=== PATIENT | female | born 1950 | race Caucasian/White ===

== ENCOUNTER 2022-04-21 09:00 | Outpatient (RCR) | payer MEDICARE, OTHER, SELFPAY ==
--- NOTE | 2022-03-22 08:56 | HP.PTEVAL ---
Patient's Visit Information AJ SANTANA is a 71 year old F referred to Physical Therapy by PATRICK HaskinsM with a diagnosis of L plantafascitis. Date of Evaluation: 03/22/22 Physical Therapist: Tutu Verma, PT, ATC - Visit Plan Frequency: 2-3x /Week Duration: 4 Weeks Plan: L gastroc and soleus stretching, DTR, dry needling, US, and HEP - Subjective Pt reports a chronic Hx of L foot pain. Pt reports this pain started 20 years ago. Pt reports she has never had PT for this in the past, but notes she was issued orthotics one week ago and they have already made a positive difference. Pt notes she has tightness that surrounds both of her feet that radiates to the calf region. Pt reports she had been diagnosed with idiopathic neuropathy at the time and was told to take more vit. B. 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 Pt reports she has been given HEP of LE stretches which have helped. Pt has had xrays which reveal she has a spur on her L heal. Pt notes she is wearing night time splints to aid with DF ROM. Pt notes she is an avid walker, and has been limited by that secondary to pain. Pt notes she has sleep difficulty secondary to pain. 0/10 pain at rest, 7/10 pain while attempting to stand after a prolonged period of sitting. - Pain L heal Pain Intensity (Out of 10): 0 Pain Intensity Range: 7 - Objective Neuro: B LE sensation is WNL to light touch. B patellar reflex= 2/3. Palpation: Pt is sore on the dorsal aspect of L heal. No obvious deformity at this time. No pain along plantarfascia distribution. ROM: R ankle DF= 5, PF= 45; L ankle DF= 5, PF= 45. MMT: Pt is grossly 5/5 throughout. Gait: Pt stands with midfoot inversion. Pt displays early toe off with stance phase. - Balance/Special Test Scores Lower Extremity Functional Score: 67 - Goals Goal 1:: Decrease L heel pain x 50% to aid with sleep Goal Time Frame: 4-6 Weeks Goal 2:: Increase L ankle DF ROM x 10 degrees to aid with decreasing L heel pain Goal Time Frame: 4-6 Weeks Goal 3:: I with HEP Goal Time Frame: 4-6 Weeks - Rehabilitation Potential Physical Therapy Diagnosis: Pt has L heel pain, limited DF ROM, and difficulty with ambulation secondary to L plantafascitis Rehabilitation Potential: Good - Anticipated Interventions Patient/Client Instruction: Educate patient on: Condition, Plan of Care For the Purpose of:: To improve self management Therapeutic Exercise to Include: Flexibilty training, Passive ROM, Active ROM For the Purpose of:: To decrease pain, To increase ROM Manual Therapy Techniques to Include: Soft tissue mobilization For the Purpose of:: To decrease pain, To increase ROM Ultrasound (thermal/non thermal): Yes For the Purpose of:: To decrease pain Thank you for the opportunity to evaluate your patient. For Medicare and Medicare HMO plans, please review the plan of care and approve it. It will need to be FAXED BACK to us at [phone] for Medicare purposes. For Medicare only, by signing this I certify the plan of care. Please let me know if there are questions or concerns regarding this plan of care. Physician Signature: Date:
--- NOTE | 2022-08-17 17:54 | HP.PT.NRP ---
AJ SANTANA was seen in my office for initial evaluation on 03/22/22. The following Plan of Care was established for this patient: Initial Frequency: 2-3x /Week Initial Duration: 4 Weeks Patient/Client Instruction: Educate patient on: Condition, Plan of Care For the Purpose of:: To improve self management Therapeutic Exercise to Include: Flexibilty training, Passive ROM, Active ROM For the Purpose of:: To decrease pain, To increase ROM Manual Therapy Techniques to Include: Soft tissue mobilization For the Purpose of:: To decrease pain, To increase ROM Ultrasound (thermal/non thermal): Yes For the Purpose of:: To decrease pain This patient was last seen in our office . Pertinent comments regarding their Physical therapy will appear below: Pt was treated for 13 PT visits for L foot pain through the date of 04/21/22. Pt has not returned through todays date and is discontinued at this time. At this point I will be discontinuing this patient from physical therapy. I would be happy to see this patient again in the future if found appropriate by the physician. Thank you! Tutu Verma, PT, ATC Balance/Gait/Functional tests - Balance/Special Test Scores Lower Extremity Functional Score: 67
== END 2022-04-21 19:00 | disposition home or self-care (01) ==
LOC: PT 09:00
PROVIDERS: PCP Physician Assistant; Referring Provider Podiatrist; Visit Provider Podiatrist
DX: M72.2 Plantar fascial fibromatosis (principal)
CPT/HCPCS: 97035; 97110; 97140; 97161

== ENCOUNTER → 2022-09-15 | Outpatient (CLI) | payer MEDICARE, OTHER, SELFPAY | END | disposition home or self-care (01) | LOC: LAB 15:03 | PROVIDERS: PCP Physician Assistant; Referring Provider Urology; Visit Provider Urology | DX: N39.0 Urinary tract infection, site not specified (principal) | CPT/HCPCS: 87086 ==

== ENCOUNTER → 2022-09-27 | Outpatient (CLI) | payer MEDICARE, OTHER, SELFPAY ==
--- NOTE | 2022-09-27 12:07 | US_ITS ---
EXAM: US RETROPERITONEAL LIMITED, RENAL CLINICAL INDICATION: FREQUENT URINARY TRACT INFECTIONS TECHNIQUE: Limited grayscale and color Doppler sonographic evaluation of the retroperitoneum was performed. COMPARISON: No relevant prior studies available. FINDINGS: RIGHT KIDNEY: Unremarkable. 12.2 cm x 5.8 cm x 3.4 cm. No hydronephrosis. No shadowing calculus. No focal lesion. No perinephric collection is demonstrated. LEFT KIDNEY: Unremarkable. 12.3 cm x 4.9 cm x 4.4 cm. No hydronephrosis. No shadowing calculus. No focal lesion. No perinephric collection is demonstrated. BLADDER: Prevoid bladder volume 111 cc. Normal wall. Bilateral ureteral jets are demonstrated in the bladder on color Doppler exam, evidence against a high-grade ureter obstruction. US/Kidney and Bladder IMPRESSION: Unremarkable kidneys and bladder. Electronically Signed: Lorri Chase MD at 5:04 EDT ,
== END | disposition home or self-care (01) ==
LOC: US 12:06
PROVIDERS: PCP Physician Assistant; Referring Provider Urology; Visit Provider Urology
DX: N39.0 Urinary tract infection, site not specified (principal)
CPT/HCPCS: 76770

== ENCOUNTER → 2024-04-14 | Outpatient (CLI) | payer OTHER, MEDICARE, SELFPAY ==
--- NOTE | 2024-04-14 12:39 | RAD_ITS ---
INDICATION: dry cough EXAMINATION/TECHNIQUE: X-RAY - XR Chest 2 Views COMPARISON: No relevant prior comparison study available FINDINGS: LINES/DEVICES: None. LUNGS: There are few patchy opacities within the right upper lobe. No pneumothorax. MEDIASTINUM AND CARDIOVASCULAR STRUCTURES: Cardiac silhouette not enlarged. Central airways and mediastinal contour are unremarkable. BONES AND SOFT TISSUES: Unremarkable. RAD/Chest PA and Lateral IMPRESSION: Right upper lobe patchy opacities may reflect pneumonia, recommend follow-up chest radiograph 6-8 weeks. Electronically Signed: Peace Maciel MD at 12:51 EST ,
== END | disposition home or self-care (01) ==
LOC: MTRAD 12:39
PROVIDERS: PCP Physician Assistant; Referring Provider Physician Assistant; Visit Provider Physician Assistant
DX: R05.8 Other specified cough (principal)
CPT/HCPCS: 71046